=== PATIENT | male | born 1960 | race Caucasian/White ===

== ENCOUNTER 2023-04-24 08:45 | Outpatient (RCR) | payer BC, SELFPAY | END 2023-08-01 17:08 | disposition home or self-care (01) | PROVIDERS: PCP Family Medicine; Visit Provider Student in an Organized Health Care Education/Training Program | DX: M25.512 Pain in left shoulder (principal); M25.561 Pain in right knee; G89.29 Other chronic pain; R26.2 Difficulty in walking, not elsewhere classified; M62.81 Muscle weakness (generalized); Z51.89 Encounter for other specified aftercare | CPT/HCPCS: 97110; 97140; 97161; 97164 ==

== ENCOUNTER 2023-08-18 07:49 | Outpatient (CLI) | payer BC, SELFPAY | END 2023-08-18 07:50 | disposition home or self-care (01) | LOC: RAD 07:52 | PROVIDERS: PCP Family Medicine; Visit Provider Internal Medicine | DX: R42 Dizziness and giddiness (principal); I34.0 Nonrheumatic mitral (valve) insufficiency | CPT/HCPCS: 93306 ==

== ENCOUNTER 2023-11-27 14:43 | Emergency (ER) | payer BC, SELFPAY ==
[2023-11-27] VITALS (34 sets, daily range): BP systolic 147–169; BP diastolic 79–93; PULSE 70–79; RESP 20; TEMP 36; O2SAT 94–98
--- NOTE | 2023-11-27 15:03 | CRLHL7_ITS ---
For Patients: As a result of the Century Cures Act, medical imaging exams and procedure reports are released immediately into your electronic medical record. You may view this report before your referring provider. If you have questions, please contact your health care provider. Indication: Fall. Technique: Noncontrast CT of the head with multiplanar reconstruction utilizing bone and soft tissue algorithms. Comparison: CT head dated 07/25/2018. Findings: No acute intracranial hemorrhage. Few scattered foci of hypoattenuation within the supratentorial white matter appear similar to prior exams. The peter-white matter interface is preserved. The ventricles are normal in size. No abnormal extra-axial fluid collection is identified. Small vertex parietal scalp hematoma. No underlying calvarial fracture. The imaged orbits and paranasal sinuses are within normal limits. Impression: 1. No acute intracranial hemorrhage. 2. Small vertex parietal scalp hematoma. No underlying calvarial fracture. Please note that all CT scans at this facility use dose modulation, iterative reconstruction, and/or weight-based dosing when appropriate to reduce radiation dose to as low as reasonably achievable. Dictated by Randolph Bowling MD @ 11/27/2023 3:51:38 PM (Electronically Signed)
--- NOTE | 2023-11-27 15:03 | CRLHL7_ITS ---
For Patients: As a result of the Century Cures Act, medical imaging exams and procedure reports are released immediately into your electronic medical record. You may view this report before your referring provider. If you have questions, please contact your health care provider. Indication: Fall. Technique: Noncontrast axial CT of the facial bones with coronal reformats are provided. No comparisons. Findings: No acute facial fracture or traumatic subluxation. The visualized paranasal sinuses are clear. The ostiomeatal complexes are patent bilaterally. The visualized intraorbital contents appear within normal limits. Impression: No acute facial fracture or traumatic subluxation. Please note that all CT scans at this facility use dose modulation, iterative reconstruction, and/or weight-based dosing when appropriate to reduce radiation dose to as low as reasonably achievable. Dictated by Luke Harris MD @ 11/27/2023 3:58:42 PM (Electronically Signed)
--- NOTE | 2023-11-27 15:03 | CRLHL7_ITS ---
For Patients: As a result of the Century Cures Act, medical imaging exams and procedure reports are released immediately into your electronic medical record. You may view this report before your referring provider. If you have questions, please contact your health care provider. Indication: Fall Technique: Noncontrast axial CT of the cervical spine with coronal and sagittal reformats. Comparison: None Findings: Nonspecific straightening of the normal cervical lordosis. Trace anterolisthesis at C4-5. Craniocervical junction appears within normal limits. No acute fracture identified. Scattered spondylosis. Bony ankylosis across the left C4-5 facet joint. No high-grade spinal canal stenosis. Multilevel neural foraminal narrowing, greatest on the right at C3-4, bilaterally at C5-6 and C6-7. No apical pneumothorax. Impression: 1. No evidence of acute fracture or traumatic malalignment in the cervical spine. 2. Cervical spondylosis as detailed. Please note that all CT scans at this facility use dose modulation, iterative reconstruction, and/or weight-based dosing when appropriate to reduce radiation dose to as low as reasonably achievable. Dictated by Vania Coello MD @ 11/27/2023 4:01:02 PM (Electronically Signed)
--- NOTE | 2023-11-27 15:04 | ED_ITS ---
HPI - General Adult General Chief complaint: Major Trauma Stated complaint: fall, possible concussion Time Seen by Provider: 11/27/23 14:51 History of Present Illness HPI narrative: This 63-year-old male came by private vehicle and walked in for evaluation of injuries from a fall that occurred about 10 or 15 minutes prior to arrival. He states that he was up on a deck and fell down approximately 10 of the stairs of the deck. A trauma team activation was initiated. He did hit the back of his head and states that he had loss of consciousness. He also complains of jaw pain and feels like his teeth are not properly aligned. He does not report any neck or back pain and states that he has no other injury. He does have some very superficial abrasions on his upper shoulders on the backside and down by his belt line similar abrasions left of midline. Related Data Home Medications ?Medication ?Instructions ?Recorded ?Confirmed amlodipine 5 mg tablet 5 mg PO BID 11/27/23 11/27/23 carvedilol 6.25 mg tablet 6.25 mg PO BID 11/27/23 11/27/23 Allergies Allergy/AdvReac Type Severity Reaction Status Date / Time lisinopril Allergy Unknown Verified 11/27/23 15:09 Review of Systems Status of ROS: Reports: 10 or more systems reviewed and unremarkable except as noted in History and below Narrative: Constitutional: No fevers, no weight gain or loss. Eyes: No discharge. He states like his vision is altered since this fall. He is able to see and focus normally. HENT: No congestion, no sore throat, no ear pain. Cardiovascular: No chest pain, no palpitations. Respiratory: No shortness of breath, no wheezes, no cough. Gastrointestinal: No abdominal pain, no vomiting, no diarrhea. Genitourinary: No dysuria, no hematuria. Musculoskeletal: Normal range of motion. Skin: No rashes, no pruritis. Neurological: No dizziness, weakness, sensory change, speech change. Endo/Heme/Allergies: No bruising or bleeding. No polydipsia. Pysch: no suicidality, no anxiety, no insomnia. All other systems reviewed and are negative. Exam Narrative: Exam Narrative: Primary Survey: Vital Signs are within normal limits. Airway: Open. Breathing: Easy. Circulation: no obvious bleeding; normal capillary refill. Disability: GCS is 15. Normal pupillary response and motor movements. Secondary Survey: Head: Abrasion on the occipital region with mild under lying swelling. No active bleeding. Tympanic membranes are visualized and appear normal bilaterally. No bleeding in the mouth but he reports that his teeth do not seem to come together properly. Neck: No midline tenderness. ROM intact. Chest: Non tender. No external signs of trauma. Abdomen: Non tender. No rebound tenderness. Normal bowel sounds. Pelvis/Genitals: No tenderness to A/P and lateral stress. No blood at the urethral meatus. Extremities: Atraumatic. Back: No midline tenderness. No sign of injury. Primary and Secondary surveys are completed. The patient's GCS is 15. [A decision to transfer this patient was made at ] Const: Vital Signs, click to edit/add: Vital Signs - 24 hr 11/27/23 15:01 11/27/23 15:31 11/27/23 15:32 Temperature 96.8 F L Pulse Rate 75 74 Pulse Rate [Pulse Oximeter] 79 Respiratory Rate 20 Blood Pressure 163/84 H Blood Pressure [Ri ght Upper Arm] 162/92 H Pulse Oximetry 98 97 97 Oxygen Delivery Me thod Room Air 11/27/23 15:41 11/27/23 15:45 11/27/23 15:51 Temperature Pulse Rate 73 74 75 Pulse Rate [Pulse Oximeter] Respiratory Rate Blood Pressure 147/84 H 154/82 H Blood Pressure [Ri ght Upper Arm] Pulse Oximetry 97 96 97 Oxygen Delivery Me thod 11/27/23 16:00 11/27/23 16:01 11/27/23 16:02 Temperature Pulse Rate 71 71 78 Pulse Rate [Pulse Oximeter] Respiratory Rate Blood Pressure 152/85 H Blood Pressure [Ri ght Upper Arm] Pulse Oximetry 97 96 98 Oxygen Delivery Me thod 11/27/23 16:11 11/27/23 16:12 11/27/23 16:15 Temperature Pulse Rate 78 70 78 Pulse Rate [Pulse Oximeter] Respiratory Rate Blood Pressure 156/89 H Blood Pressure [Ri ght Upper Arm] Pulse Oximetry 96 97 98 Oxygen Delivery Me thod 11/27/23 16:21 11/27/23 16:30 11/27/23 16:31 Temperature Pulse Rate 72 77 74 Pulse Rate [Pulse Oximeter] Respiratory Rate Blood Pressure 157/85 H 154/86 H Blood Pressure [Ri ght Upper Arm] Pulse Oximetry 97 96 96 Oxygen Delivery Me thod 11/27/23 16:32 11/27/23 16:41 11/27/23 16:45 Temperature Pulse Rate 73 72 75 Pulse Rate [Pulse Oximeter] Respiratory Rate Blood Pressure 154/84 H Blood Pressure [Ri ght Upper Arm] Pulse Oximetry 97 96 96 Oxygen Delivery Me thod 11/27/23 16:51 11/27/23 17:00 11/27/23 17:01 Temperature Pulse Rate 74 76 74 Pulse Rate [Pulse Oximeter] Respiratory Rate Blood Pressure 154/79 H 157/87 H Blood Pressure [Ri ght Upper Arm] Pulse Oximetry 96 94 95 Oxygen Delivery Me thod 11/27/23 17:11 11/27/23 17:21 11/27/23 17:31 Temperature Pulse Rate 77 Pulse Rate [Pulse Oximeter] Respiratory Rate Blood Pressure 162/87 H 167/89 H 153/93 H Blood Pressure [Ri ght Upper Arm] Pulse Oximetry 96 Oxygen Delivery Me thod 11/27/23 17:41 11/27/23 17:51 11/27/23 18:02 Temperature Pulse Rate Pulse Rate [Pulse Oximeter] Respiratory Rate Blood Pressure 158/87 H 159/83 H 167/93 H Blood Pressure [Ri ght Upper Arm] Pulse Oximetry Oxygen Delivery Me thod Course Vital Signs Vital signs: Initial Vital Signs Temperature 96.8 F L 11/27/23 15:01 Temperature Source Temporal Artery Scan 11/27/23 15:01 Pulse Rate 79 11/27/23 15:01 Respiratory Rate 11/27/23 15:01 Blood Pressure 162/92 H 11/27/23 15:01 Blood Pressure Mean 115 H 11/27/23 15:01 Blood Pressure Position Sitting 11/27/23 15:01 Pulse Oximetry 98 11/27/23 15:01 Oxygen Delivery Method Room Air 11/27/23 15:01 Vital Signs Temperature 96.8 F L 11/27/23 15:01 Pulse Rate 79 11/27/23 15:01 Respiratory Rate 20 11/27/23 15:01 Blood Pressure 162/92 H 11/27/23 15:01 Pulse Oximetry 98 11/27/23 15:01 Oxygen Delivery Method Room Air 11/27/23 15:01 Temperature 96.8 F L 11/27/23 15:01 Pulse Rate 77 11/27/23 17:11 Respiratory Rate 20 11/27/23 15:01 Blood Pressure 167/93 H 11/27/23 18:02 Pulse Oximetry 96 11/27/23 17:11 Oxygen Delivery Method Room Air 11/27/23 15:01 Medical Decision Making MDM Narrative Medical decision making narrative: This patient comes in for evaluation of head injury that happened just prior to arrival. CT scan of the head, C-spine, and facial bone is obtained. Initial reading of these was all negative but upon further review radiologist called and said there is a subtle nondisplaced fracture of the calvarium with some small amount of subdural hematoma along the midline fissure. The patient it appears to be in no acute distress and does not report a significant headache. He did state that he needed to get up to the restroom and felt like he was falling to his right and had some sense of movement when ambulating. I did speak with an ER physician at [facility], Dr. Moreno/Manish, who agreed to his transfer there for further evaluation and treatment. Imaging Data CT scan - head: Radiologist's impression: Impression: 1. No acute intracranial hemorrhage. 2. Small vertex parietal scalp hematoma. No underlying calvarial fracture. Please note that all CT scans at this facility use dose modulation, iterative reconstruction, and/or weight-based dosing when appropriate to reduce radiation dose to as low as reasonably achievable. Dictated by Randolph Bowling MD @ 11/27/2023 3:51:38 PM ----- ADDENDUM ----- Addendum : On further review, a nondisplaced calvarial fracture is noted through the right frontal bone at the cranial vertex (series 5 image 54), with extension to the sagittal suture and trace diastasis. In addition, a trace subdural hematoma tracks along the anterior interhemispheric fissure (series 8, image 11). CT Cervical Spine: Radiologist's impression: 1. No evidence of acute fracture or traumatic malalignment in the cervical spine. 2. Cervical spondylosis as detailed. CT Facial Bones: Radiologist's impression: No acute facial fracture or traumatic subluxation. Discharge Plan Discharge Clinical Impression: Calvarial fracture, Acute subdural hematoma Patient Disposition: Xfer Other Condition: Unchanged Prescriptions: No Action carvedilol 6.25 mg tablet 6.25 mg PO BID amlodipine 5 mg tablet 5 mg PO BID Follow Up/Referrals: Shanice Watson DO [Primary Care Provider] - Stand Alone Forms: [employer] Info Instructions
== END 2023-11-27 19:10 | disposition other institution (70) ==
PROVIDERS: Emergency Provider Emergency Medicine Emergency Medical Services; PCP Family Medicine
DX: S06.5X0A Traumatic subdural hemorrhage without loss of consciousness, initial encounter (principal); W10.9XXA Fall (on) (from) unspecified stairs and steps, initial encounter; S02.81XA Fracture of other specified skull and facial bones, right side, initial encounter for closed fracture
CPT/HCPCS: 70450; 70486; 72125; 99284; 99291; G0390

== ENCOUNTER 2023-11-27 18:55 | Outpatient (CLI) | payer BC, SELFPAY | END 2023-11-27 18:56 | disposition home or self-care (01) | PROVIDERS: PCP Family Medicine; Visit Provider Emergency Medicine Emergency Medical Services | DX: S02.0XXA Fracture of vault of skull, initial encounter for closed fracture (principal) | CPT/HCPCS: A0425; A0427 ==